=== PATIENT | female | born 2000 | race Caucasian/White ===

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

== ENCOUNTER 2021-01-29 08:22 | Emergency (ER) | payer MEDICAID, OTHER ==
[~2021-01-29] VITALS: Ht 157.5 cm; Wt 50.0 kg
[~2021-01-29 08:22] MED LIST: XULANE1 TDM TD
[2021-01-29 08:35] VITALS: BP 107/67; TEMP 98.2
[2021-01-29] MEDS ORDERED: ZITHROMAX Z PA250 MG PO (09:35)
[2021-01-29] MEDS ORDERED: ZOFRAN 4MG T4 MG/TAB PO (09:35)
[2021-01-29 10:15] VITALS: PULSE 65
== END 2021-01-29 10:15 | disposition home or self-care (01) ==
LOC: COL.ER 08:22
DX: B34.9 Viral infection, unspecified (principal)

== ENCOUNTER 2022-02-23 13:07 | Emergency (ER) | payer MEDICAID ==
[~2022-02-23] VITALS: Ht 154.9 cm; Wt 45.5 kg
[~2022-02-23 13:07] MED LIST changes: +ZITHROMAX Z PA250 MG PO; +ZOFRAN 4MG T4 MG/TAB PO
[2022-02-23 13:11] VITALS: TEMP 97.9
[2022-02-23 14:13] VITALS: BP 117/77; PULSE 74
[2022-03-29] MEDS ORDERED: MEDROL 4MG DOSPA4 MG PO (21:17)
[2022-07-16] MEDS ORDERED: PEPCID 20MG TAB20 MG PO ×2 (10:56→12:33)
[2022-07-16] MEDS ORDERED: PEPCID 20MG TAB20 MG (10:56)
[2022-07-16] MEDS ORDERED: PROTONIX 40MG T40 MG PO (10:56)
[2022-07-16] MEDS ORDERED: PROTONIX20 MG PO (12:14)
== END 2022-02-23 14:15 | disposition home or self-care (01) ==
LOC: COL.ER 13:07
DX: S09.90XA Unspecified injury of head, initial encounter (principal); Z28.310 Unvaccinated for COVID-19; Y04.8XXA Assault by other bodily force, initial encounter

== ENCOUNTER 2022-03-22 16:46 | Emergency (ER) | payer MEDICAID ==
[~2022-03-22] VITALS: Ht 154.9 cm; Wt 44.5 kg
[2022-03-22 16:51] VITALS: BP 111/70; TEMP 97.8
[2022-03-22 18:01] VITALS: PULSE 70
== END 2022-03-22 18:02 | disposition home or self-care (01) ==
LOC: COL.ER 16:46
DX: J40 Bronchitis, not specified as acute or chronic (principal); Z28.310 Unvaccinated for COVID-19